=== PATIENT | male | born 1990 | race American Indian/Alaskan Native ===

== ENCOUNTER 2018-07-27 16:18 | Emergency (ER) | payer SELFPAY ==
[2018-07-27] MEDS ORDERED: Ondansetron 4 MG/2 ML SDV IVPUSH ONE (16:23)
[2018-07-27] MEDS ORDERED: Thiamine 200 MG/2 ML MDV IVPUSH ONE (16:24)
[2018-07-27] MEDS ORDERED: Diphtheria,Pertussis(Acell),Tetanus Vaccine 0.5 ML Syringe IM ONE (16:25)
[2018-07-27] MEDS ORDERED: EPINEPHrine/Lidocaine/Tetracai 3 ML ML TOP ONE (16:25)
[2018-07-27 16:31] VITALS: BP 122/76
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
[2018-07-27] MEDS ORDERED: Sodium Chloride 0.9% 1,000 ML IV SCH ×2 (16:45→19:45)
--- NOTE | 2018-07-27 17:38 | CT ---
CT cervical spine Technique: Multiple axial sections were obtained from above C1 inferiorly to the bottom of T1. Reconstructed sagittal and coronal images were obtained. Comparison: Prior CT cervical spine exam of 01/19/18. Findings: Vertebral body heights and disc spaces are maintained. Posterior skull base is intact. No fracture is seen. No bony central or bony neural foraminal stenosis is seen. No abnormal subluxation is seen on the reconstructed sagittal images. Slight scoliosis is seen. Impression: 1. Slight scoliosis. Nothing acute is seen on CT study of the cervical spine. Findings appear stable from previous exam. Diagnostic code #2
--- NOTE | 2018-07-27 17:41 | CT ---
Head CT Technique: Multiple axial sections through the brain were obtained. Intravenous contrast was not utilized. Comparison: Prior head CT study of 01/19/18 is available. Findings: Ventricles along with basal cisterns and sulci over convexities are within normal limits for the patient's age. No abnormal parenchymal densities are seen. No evidence of intracranial hemorrhage. No midline shift or mass effect is seen. Bone window settings were reviewed which shows no acute calvarial abnormality. Moderate mucosal thickening is noted within the ethmoid sinuses which appears to be chronic. Minimal mucosal thickening is seen within the right sphenoid sinus. Impression: 1. Mucosal thickening as noted above compatible with chronic sinusitis. 2. No acute intracranial abnormality is appreciated. Diagnostic code #2
[2018-07-27] MEDS ORDERED: Acetaminophen 325 MG Tab ONE (21:33)
[2018-07-27] MEDS ORDERED: Acetaminophen 325 MG Tab PO ONE (21:50)
--- NOTE | 2018-07-28 12:13 | CR ---
Chest: Portable view of the chest was obtained. Comparison: Prior chest x-ray of 01/19/18. Heart size and mediastinum are within normal limits for portable technique. Lungs are clear. Bony structures are grossly intact. Impression: 1. Nothing acute is seen on portable chest x-ray. Diagnostic code #1
== END 2018-07-27 23:00 | disposition home or self-care (01) ==
LOC: JD.ED 16:18
DX: F10.920 Alcohol use, unspecified with intoxication, uncomplicated (principal); S01.01XA Laceration without foreign body of scalp, initial encounter; E87.0 Hyperosmolality and hypernatremia; W22.8XXA Striking against or struck by other objects, initial encounter; Y90.8 Blood alcohol level of 240 mg/100 ml or more; Z23 Encounter for immunization
CPT/HCPCS: 12001; 36415; 70450; 71045; 72125; 80048; 80053; 80306; 81001; 82962; 85007; 85027; 85610; 85730; 90471; 90700; 96361; 96374; 96375; 99285; A9270; G0480; J2405; J3411; J7040; 99283

== ENCOUNTER 2020-06-26 20:47 | Emergency (ER) | payer MEDICAID ==
--- NOTE | 2020-06-26 21:11 | EDM.PDOC ---
ED HPI GENERAL MEDICAL PROBLEM - General Chief Complaint: Behavioral/Psych Stated Complaint: [facility] Time Seen by Provider: 06/26/20 20:50 Source of Information: Reports: Patient, EMS History Limitations: Reports: Intoxication - History of Present Illness INITIAL COMMENTS - FREE TEXT/NARRATIVE: This is a 30-year-old male. Apparently he has been drinking tonight according to the EMS and with the family told the EMS. However he fell and hit his head and the family states he has been acting differently since that time. They bring him to the ER for evaluation. On the way to the ER apparently he was somewhat combative but he is soon as he urinated he settled down and is been acting normal. When he arrived to the ER he was awake he could express his desire to urinate to the nurses. He has spontaneous eye opening and he will follow simple commands. His speech is still somewhat confused and he seems to be disoriented. Does not appear to have any obvious head trauma. He is known to take other drugs but according to the EMS the family states he has not been taking any drugs and just drinking alcohol. Cannot get a further history from the patient himself. Headache Pain Score (Numeric/FACES): 6 - Related Data Allergies Allergy/AdvReac Type Severity Reaction Status Date / Time No Known Allergies Allergy Verified 06/26/20 21:19 Home Meds: Home Meds . [No Known Home Meds] 07/27/18 [History] Past Medical History - Past Health History Medical/Surgical History: Denies Medical/Surgical History Cardiovascular History: Reports: Heart Murmur - Past Surgical History Musculoskeletal Surgical History: Reports: ORIF Social & Family History - Caffeine Use Caffeine Use: Reports: Coffee - Living Situation & Occupation Living situation: Reports: Single, Alone Occupation: Employed ED ROS GENERAL - Review of Systems Review Of Systems: See Below Reason Not Obtained: Unable to get an accurate review of systems upon arrival - Physical Exam Exam: See Below Exam Limited By: Intoxication General Appearance: Alert, WD/WN, No Apparent Distress Eye Exam: Bilateral Eye: Normal Inspection, Other (Pupils are equal and reactive but sluggish) Ears: Normal External Exam, Normal Canal, Normal TMs Nose: Normal Inspection Throat/Mouth: Normal Lips, Normal Oropharynx, No Airway Compromise Head Exam: Atraumatic, Normocephalic, Other (Do not find any area of contusion or abrasion to his scalp.) Neck: Supple, Other (Moves his head from side to side looking at each of us in the room he does not appear to have any neck or cervical tenderness on palpation.) Respiratory/Chest: No Respiratory Distress, Lungs Clear, Normal Breath Sounds, Other (No rib tenderness bilaterally on palpation) Cardiovascular: Regular Rate, Rhythm, No Murmur GI/Abdominal: Soft, Non-Tender Neuro Exam (Abbreviated): Other (Patient is awake. His GCS is 14 with spontaneous eye opening, confused and disoriented at speech but he does obey commands. This is a betterment from his GCS of 10 according to the EMS.) Back Exam: Normal Inspection, Full Range of Motion Extremities: Normal Range of Motion, Other (Does have multiple bruising's to his knees and some to his elbows there appear to be some old track thorpe in his arms.) Psychiatric: Other (Patient is tempting to communicate with the nurses though he is still confused. Does not appear to be anxious.) Skin Exam: Warm, Dry Course - Vital Signs Last Recorded V/S: Last Vital Signs Temp 96.9 F 06/26/20 21:09 Pulse 69 06/26/20 21:09 Resp 18 06/26/20 21:09 BP 124/90 06/26/20 21:09 Pulse Ox 92 L 06/26/20 21:09 - Orders/Labs/Meds Orders: Active Orders 24 hr Category Date Time Status Head wo Cont [CT] Stat Exams 06/26/20 21:05 Taken Labs: Laboratory Tests 06/26/20 06/26/20 06/26/20 Range/Units 21:00 21:00 21:20 WBC 7.48 (4.23-9.07) K/mm3 RBC 4.72 (4.63-6.08) M/mm3 Hgb 14.4 (13.7-17.5) gm/dl Hct 44.7 (40.1-51.0) % MCV 94.7 H (79.0-92.2) fl MCH 30.5 (25.7-32.2) pg MCHC 32.2 (32.2-35.5) g/dl RDW Std Deviation 52.7 H (35.1-43.9) fL Plt Count 287 (163-337) K/mm3 MPV 9.4 (9.4-12.3) fl Neut % (Auto) 70.4 H (34.0-67.9) % Lymph % (Auto) 22.3 (21.8-53.1) % [place] % (Auto) 5.3 (5.3-12.2) % Eos % (Auto) 0.9 (0.8-7.0) Baso % (Auto) 0.7 (0.1-1.2) % Neut # (Auto) 5.26 (1.78-5.38) K/mm3 Lymph # (Auto) 1.67 (1.32-3.57) K/mm3 [place] # (Auto) 0.40 (0.30-0.82) K/mm3 Eos # (Auto) 0.07 (0.04-0.54) K/mm3 Baso # (Auto) 0.05 (0.01-0.08) K/mm3 Sodium (136-145) mEq/L Potassium (3.5-5.1) mEq/L Chloride (98-107) mEq/L Carbon Dioxide (21-32) mEq/L Anion Gap (5-15) BUN (7-18) mg/dL Creatinine (0.7-1.3) mg/dL Est Cr Clr Drug Dosing Estimated GFR (MDRD) (>60) mL/min BUN/Creatinine Ratio (14-18) Glucose (74-106) mg/dL Calcium (8.5-10.1) mg/dL Total Bilirubin (0.2-1.0) mg/dL AST (15-37) U/L ALT (16-63) U/L Alkaline Phosphatase (46-116) U/L Total Protein (6.4-8.2) g/dl Albumin (3.4-5.0) g/dl Globulin gm/dL Albumin/Globulin Ratio (1-2) Urine Color Light yellow (Yellow) Urine Appearance Clear (Clear) Urine pH 6.5 (5.0-8.0) Ur Specific [place] 1.015 (1.005-1.030) Urine Protein Negative (Negative) Urine Glucose (UA) Negative (Negative) Urine Ketones Negative (Negative) Urine Occult Blood Negative (Negative) Urine Nitrite Negative (Negative) Urine Bilirubin Negative (Negative) Urine Urobilinogen 0.2 (0.2-1.0) Ur Leukocyte Esterase Negative (Negative) Urine RBC Not seen (0-5) /hpf Urine WBC 0-5 (0-5) /hpf Ur Epithelial Cells Not seen (0-5) /hpf Urine Bacteria Rare (FEW) /hpf Urine Mucus Not seen (FEW) /hpf Urine Opiates Screen Negative (HMVDPF=916) Ur Buprenorphine Scrn Negative (CUTOFF=10) Ur Oxycodone Screen Negative (IQK1AS=940) Urine Methadone Screen Negative (UBW8DJ=523) Ur Propoxyphene Screen Negative (LWWQAM=981) Ur Barbiturates Screen Negative (DPDEQO=021) Ur Tricyclics Screen Negative (ROHSWU=290) Ur Phencyclidine Scrn Negative (CUTOFF=25) Ur Amphetamine Screen Negative (QNLVPQ=196) U Methamphetamines Scrn Negative (GOMXCH=217) U Benzodiazepines Scrn Negative (PLIBZM=829) U Cocaine Metab Screen Negative (NNFOQL=828) U Marijuana (THC) Screen Presumptive positive H (CUTOFF=50) Ethyl Alcohol (0.00) gm% 06/26/20 Range/Units 21:20 WBC (4.23-9.07) K/mm3 RBC (4.63-6.08) M/mm3 Hgb (13.7-17.5) gm/dl Hct (40.1-51.0) % MCV (79.0-92.2) fl MCH (25.7-32.2) pg MCHC (32.2-35.5) g/dl RDW Std Deviation (35.1-43.9) fL Plt Count (163-337) K/mm3 MPV (9.4-12.3) fl Neut % (Auto) (34.0-67.9) % Lymph % (Auto) (21.8-53.1) % [place] % (Auto) (5.3-12.2) % Eos % (Auto) (0.8-7.0) Baso % (Auto) (0.1-1.2) % Neut # (Auto) (1.78-5.38) K/mm3 Lymph # (Auto) (1.32-3.57) K/mm3 [place] # (Auto) (0.30-0.82) K/mm3 Eos # (Auto) (0.04-0.54) K/mm3 Baso # (Auto) (0.01-0.08) K/mm3 Sodium 152 H (136-145) mEq/L Potassium 3.8 (3.5-5.1) mEq/L Chloride 112 H (98-107) mEq/L Carbon Dioxide 26 (21-32) mEq/L Anion Gap 17.8 H (5-15) BUN 11 (7-18) mg/dL Creatinine 1.0 (0.7-1.3) mg/dL Est Cr Clr Drug Dosing TNP Estimated GFR (MDRD) > 60 (>60) mL/min BUN/Creatinine Ratio 11.0 L (14-18) Glucose 115 H (74-106) mg/dL Calcium 8.0 L (8.5-10.1) mg/dL Total Bilirubin 0.2 (0.2-1.0) mg/dL AST 19 (15-37) U/L ALT 29 (16-63) U/L Alkaline Phosphatase 103 (46-116) U/L Total Protein 7.3 (6.4-8.2) g/dl Albumin 3.6 (3.4-5.0) g/dl Globulin 3.7 gm/dL Albumin/Globulin Ratio 1.0 (1-2) Urine Color (Yellow) Urine Appearance (Clear) Urine pH (5.0-8.0) Ur Specific [place] (1.005-1.030) Urine Protein (Negative) Urine Glucose (UA) (Negative) Urine Ketones (Negative) Urine Occult Blood (Negative) Urine Nitrite (Negative) Urine Bilirubin (Negative) Urine Urobilinogen (0.2-1.0) Ur Leukocyte Esterase (Negative) Urine RBC (0-5) /hpf Urine WBC (0-5) /hpf Ur Epithelial Cells (0-5) /hpf Urine Bacteria (FEW) /hpf Urine Mucus (FEW) /hpf Urine Opiates Screen (TWDKMM=315) Ur Buprenorphine Scrn (CUTOFF=10) Ur Oxycodone Screen (KES0XH=306) Urine Methadone Screen (SQA2UF=167) Ur Propoxyphene Screen (TNXPYU=544) Ur Barbiturates Screen (YIARMY=004) Ur Tricyclics Screen (PTVKQF=430) Ur Phencyclidine Scrn (CUTOFF=25) Ur Amphetamine Screen (ELISOM=096) U Methamphetamines Scrn (XLODQY=112) U Benzodiazepines Scrn (HLROFM=323) U Cocaine Metab Screen (NDZORZ=583) U Marijuana (THC) Screen (CUTOFF=50) Ethyl Alcohol 0.52 (0.00) gm% Meds: Medications Discontinued Medications Generic Name Dose Route Start Last Admin Trade Name Zena PRN Reason Stop Dose Admin Ondansetron HCl 4 mg 06/27/20 01:21 Ondansetron 4 Mg/2 Ml Sdv IVPUSH 06/27/20 01:22 ONETIME ONE - Radiology Interpretation Free Text/Narrative:: CT scan of the head does not show any acute intracranial abnormality. - Re-Assessments/Exams Free Text/Narrative Re-Assessment/Exam: 06/26/20 22:00 I spoke to the mother in law who came to the ER regarding the patient. I explained to the mother in law that him hitting his head is not the reason for his different behavior but that he has been drinking too much. We will watch him until he wakes up and is more normal then we will discharge him with the [id number]. 06/27/20 01:24 To the patient since he is now awake and able to communicate. He is also able to walk. But I explained to him that his alcohol intake is going to be the of him if he does not do something to stop. Departure - Departure Time of Disposition: 01:24 Disposition: Home, Self-Care 01 Condition: Fair Clinical Impression: Alcohol abuse, Drug abuse Acute alcohol intoxication Qualifiers: Complication of substance-induced condition: uncomplicated Qualified Code(s): F10.920 - Alcohol use, unspecified with intoxication, uncomplicated Contusion of scalp Qualifiers: Encounter type: initial encounter Qualified Code(s): S00.03XA - Contusion of scalp, initial encounter - Discharge Information *PRESCRIPTION DRUG MONITORING PROGRAM REVIEWED*: Not Applicable *COPY OF PRESCRIPTION DRUG MONITORING REPORT IN PATIENT JODIE: Not Applicable Instructions: Alcohol Use Disorder, Alcohol Abuse and Dependence Information, Adult Referrals: PCP,None [Primary Care Provider] - Forms: ED Department Discharge Additional Instructions: Please stop drinking alcohol, your level tonight was greater than 6 times legal, your body cannot handle this very well and if you continue to do this it will begin to breakdown, if you would like to get outpatient treatment to stop drinking alcohol you can call the [facility] on Sunday at [phone] and you can be treated as an outpatient to stop the alcohol abuse, return to the ER if needed Sepsis Event Note (ED) - Focused Exam Vital Signs: Vital Signs Temp Pulse Resp BP Pulse Ox 06/26/20 21:09 96.9 F 69 18 124/90 92 L - My Orders Last 24 Hours: My Active Orders 06/26/20 21:05 Head wo Cont [CT] Stat - Assessment/Plan Last 24 Hours: My Active Orders 06/26/20 21:05 Head wo Cont [CT] Stat
[2020-06-26 21:19] VITALS: BP 124/90; PULSE 69
[2020-06-27] MEDS ORDERED: Ondansetron 4 MG/2 ML SDV IVPUSH ONE (01:21)
[2020-06-27] MEDS ORDERED: Ondansetron 4 MG Tab.DIS PO ONE (01:25)
--- NOTE | 2020-06-27 10:03 | CT ---
Head CT Technique: Multiple axial sections through the brain were obtained. Intravenous contrast was not utilized. Reconstructed coronal and sagittal images were obtained. Comparison: Prior head CT exam of 07/27/18. Findings: Mild motion artifact is seen. Ventricles along with basal cisterns and sulci over the convexities appear within normal limits. No definite abnormal parenchymal densities are seen. No evidence of intracranial hemorrhage. No midline shift or mass-effect is appreciated. Bone window settings were reviewed. No acute paranasal sinus findings are seen within the visualized sinuses. Visualized mastoid sinuses appear without acute abnormality. No acute calvarial abnormality is appreciated. Impression: 1. Motion artifact. Within this limitation, nothing acute is appreciated. Diagnostic code #2 I agree with preliminary report from [facility], finalized on 06/26/20, 10:57 PM CDT
== END 2020-06-27 01:30 | disposition home or self-care (01) ==
LOC: JD.ED 20:47
DX: S00.03XA Contusion of scalp, initial encounter (principal); F10.120 Alcohol abuse with intoxication, uncomplicated; Y90.0 Blood alcohol level of less than 20 mg/100 ml; W18.30XA Fall on same level, unspecified, initial encounter; Y92.009 Unspecified place in unspecified non-institutional (private) residence as the place of occurrence of the external cause
CPT/HCPCS: 36415; 70450; 80053; 80306; 80307; 81001; 85025; 99285; A9270; 99284